=== PATIENT | male | born 1990 | race African-American/Black ===

== ENCOUNTER 2024-03-26 07:51 | Emergency (ER) | payer OTHER, SELFPAY ==
[2024-03-26 07:55] VITALS: BP 158/95; PULSE 65; RESP 18; TEMP 36.8; O2SAT 100
--- NOTE | 2024-03-26 07:56 | ED.WOUNDLAC ---
HPI - Wound/Laceration General Chief Complaint: Wound/Laceration Stated Complaint: lac Time Seen by Provider: 03/26/24 07:53 History of Present Illness HPI narrative: Patient was playing basketball when he caught an elbow to the face no nausea vomiting or loss of consciousness, tetanus up-to-date. Happened about 45 minutes prior to arrival Related Data Allergies Allergy/AdvReac Type Severity Reaction Status Date / Time No Known Allergies Allergy Verified 03/26/24 07:52 Review of Systems Review of Systems: All systems reviewed & are unremarkable except as noted in HPI and below Exam Narrative: EXAMINATION OF ORGAN SYSTEMS/BODY AREAS: Constitutional: Vital signs per nursing GENERAL:[No acute distress, non-toxic appearing.] HEAD: Laceration to forehead EYES: EOMI, conjunctiva normal ENT: Hearing grossly intact LUNGS: Nonlabored breathing. HEART: [Regular rate and rhythm] ABD: [Soft], [nontender to palpation] EXT: Normal range of motion SKIN: 2cm lac to glabella NEURO: [Alert and oriented x 3. No gross focal sensory or strength deficits.] PSYCH: Normal affect Course Vital Signs Vital signs: Vital Signs Temperature 98.2 F 03/26/24 07:55 Pulse Rate 65 03/26/24 07:55 Respiratory Rate 18 03/26/24 07:55 Blood Pressure 158/95 H 03/26/24 07:55 Pulse Oximetry 100 03/26/24 07:55 Oxygen Delivery Room Air 03/26/24 07:55 Temperature 98.2 F 03/26/24 07:55 Pulse Rate 65 03/26/24 07:55 Respiratory Rate 18 03/26/24 07:55 Blood Pressure 158/95 H 03/26/24 07:55 Pulse Oximetry 100 03/26/24 07:55 Oxygen Delivery Room Air 03/26/24 07:55 Procedures Laceration Laceration 1: Date: 03/26/24 Time: 08:29 Site: face Size (cm): 2 Description: linear, irregular and clean Depth: simple, single layer Local Anesthetic: lidocaine 1% Amount of anesthesia used (mL): 2 Pre-repair: wound explored, irrigated and deep structures intact ====== Skin Level ====== Skin layer closed with: vicryl Size (cm): 5-0 Number of sutures: 5 Technique: simple, interrupted ====== Subcutaneous Layer ====== ====== Muscle Layer ====== ====== Tendon Layer ====== MDM - Wound/Laceration MDM Narrative Medical decision making narrative: Patient presents with facial laceration, well appearing, no loss of consciousness or nausea vomiting or injuries elsewhere. Gaping 2 cm laceration to glabella, verbal consent obtained, laceration cleaned, numbed, repaired, patient tolerated well, total of 5 5-0 Vicryl sutures placed with good approximation. Stable for discharge with return precautions. Patient's tetanus is up-to-date. Discharge Plan Discharge Clinical Impression: Laceration Patient Disposition: Home, Self-Care Condition: Stable Instructions: Antibiotic Form, Laceration (ED) Additional Instructions: Keep the wound clean, use sunscreen or sun protection and moisturize to help minimize scarring, you can have the stitches taken out in 1 week or they should dissolve on their own. You can always return to the ER for any further issues. Follow-up/Referrals: Anthony,Jey Baca MD [Primary Care Provider] - 1 Week
--- NOTE | 2024-03-26 08:01 | PC.NURSE ---
33 year old male presents to ED for laceration sustained by playing basketball. Patient states that he was hit by a players elbow. Laceration is about 1cm in length, well approximated. Patient is alert and oriented x's 4. Ambulatory to room 14 with steady gait. Wound cleansed with sterile water and gauze.
--- NOTE | 2024-03-26 08:06 | PC.NURSE ---
MD Priceang in with patient at this time placing sutures.
[2024-03-26 08:58] VITALS: BP 152/66; PULSE 70; RESP 18; TEMP 36.2; O2SAT 98
== END 2024-03-26 09:00 | disposition home or self-care (01) ==
LOC: ANHED 08:25
PROVIDERS: Emergency Provider Emergency Medicine; PCP Internal Medicine
DX: S01.81XA Laceration without foreign body of other part of head, initial encounter (principal); W51.XXXA Accidental striking against or bumped into by another person, initial encounter; Y93.66 Activity, soccer
CPT/HCPCS: 12011; 99282; J2004

== ENCOUNTER 2025-02-13 14:22 | Emergency (ER) | payer OTHER, SELFPAY ==
[2025-02-13 14:30] VITALS: BP 127/107; PULSE 61; RESP 16; TEMP 36.9; O2SAT 98
--- NOTE | 2025-02-13 15:03 | ED_ITS ---
HPI - Eye Problem General Chief complaint: Eye Problems Stated complaint: hit in eye with basketball Time Seen by Provider: 02/13/25 14:41 History of Present Illness HPI Narrative: This is a 34-year-old male with no significant past medical history presents the ED for right eye pain. Patient states that he was playing basketball this morning when he was hit in the right eye with the ball. He has had a sandpaper like feeling to his eye since then. He has had some blurry vision. He does not wear contacts. Related Data Allergies Allergy/AdvReac Type Severity Reaction Status Date / Time No Known Allergies Allergy Verified 03/26/24 07:52 Review of Systems Review of Systems: Gen.: Denies fevers or chills Eyes: Denies eye pain or visual change ENT: Denies congestion Respiratory: Denies shortness of breath or cough CV: Denies chest pain or palpitations GI: Denies abdominal pain nausea, emesis or diarrhea denies burning, urgency, frequency or hematuria Musculoskeletal: Denies back pain or muscle pain Neuro: Denies numbness, tingling, weakness or focal weakness Skin: Denies rash Except as documented, all other systems reviewed and negative Exam Narrative: APPEARANCE: No acute distress, nontoxic, resting in bed HEENT: Normocephalic, atraumatic, OMM. Right eye: Fluorescein staining revealed a small corneal abrasion over the right pupil. PERRL, EOMI. RESPIRATORY: No respiratory distress CARDIOVASCULAR: Appears well perfused ABDOMINAL: Nondistended MUSCULOSKELETAl: Moves all extremities. No obvious deformities NEURO: Awake and alert. SKIN:: Warm, dry. No rashes lesions or abrasions PSYCHIATRIC: Normal affect/mood, Course Vital Signs Vital signs: Vital Signs Temperature 98.5 F 02/13/25 14:30 Pulse Rate 61 02/13/25 14:30 Respiratory Rate 16 02/13/25 14:30 Blood Pressure 127/107 H 02/13/25 14:30 Pulse Oximetry 98 02/13/25 14:30 Oxygen Delivery Room Air 02/13/25 14:30 Temperature 98.5 F 02/13/25 14:30 Pulse Rate 61 02/13/25 14:30 Respiratory Rate 16 02/13/25 14:30 Blood Pressure 127/107 H 02/13/25 14:30 Pulse Oximetry 98 02/13/25 14:30 Oxygen Delivery Room Air 02/13/25 14:30 MDM - Eye Problem MDM Narrative Medical decision making narrative: 34-year-old male who presented to the ED for right eye pain after being hit with a basketball. On initial evaluation, patient was in no acute distress, afebrile and hemodynamically stable. Forcing staining did reveal a small corneal abrasion over the right pupil. Patient was given a prescription for erythromycin. He has an appointment tomorrow with the mill set up which I encouraged him to go to. Patient was agreeable to this plan. Given strict return precautions. Differential Diagnosis Differential diagnosis: Likely corneal abrasion, acute iritis, corneal ulcer and ruptured globe Medical Records Attestation: I reviewed the patient's medical records. Discharge Plan Discharge Clinical Impression: Corneal abrasion Qualifiers: Encounter type: initial encounter Laterality: right Qualified Code(s): S05.01XA - Injury of conjunctiva and corneal abrasion without foreign body, right eye, initial encounter Patient Disposition: Home Condition: Stable Instructions: Antibiotic Form Additional Instructions: Take erythromycin ointment as prescribed. Follow-up with your mill set up tomorrow as scheduled. You may also follow-up with [facility] in next couple days for re-evaluation. Return the ED for any new or worsening symptoms. You may also use saline drops to the eyes in between doses. Patient Language: Somali Prescriptions: New erythromycin 5 mg/gram (0.5 %) ointment 1 applic RIGHT EYE Q6H Qty: 3.5 0RF Follow-up/Referrals: [facility] [Outside] Anthony,Jey Baca MD [Primary Care Provider]
--- OUTSIDE RECORDS SUMMARY | 2025-02-13 16:09 | XMS_ITS | Clinical Summary ---
Author Organization [facility] Address [address] [place] [id number] Care Team Providers Care Tenant Selector Name Role Phone Jey Cruz MD Primary Care Provider Allergies No known active allergies Medications No known medications Active Problems No known active problems Encounters Date Type Department Care Team Description 12/09/[address] [facility] Neuro Sleep [address] [facility] [address] [place] [phone] Robles Levy NP Sleep disturbances (Primary Dx) 12/09/[address] [facility] Neuro Sleep [address] [facility] [address] [place] [address] Tianna Ponce CMA 11/28/2024 11:00 AM CDT Procedure visit [facility] Neuro Sleep [address] [facility] [address] [place] [address] Snoring from Last 3 Months Immunizations Immunization Administration Dates Next Due Influenza, Quadrivalent, Rec ombinant, Egg Free, Preservative Free, Intramuscular 07/28/2022 Tdap 06/26/2020 Family History Medical History Relation Name Comments No Known Problems Brother Hipolito No Known Problems Father Asthma Mother Coronary artery disease Mother Stroke Paternal Grandfather No Known Problems Sister 1 Nina No Known Problems Sister 2 Arina Relation Name Status Comments Brother Hipolito Alive Father Alive Maternal Grandfather Alive Maternal Grandmother Alive Mother Alive Paternal Grandfather Alive Paternal Grandmother Alive Sister 1 Nina Alive Sister 2 Arina Alive Social History Tobacco Use Types Packs/Day Years Used Date Smoking Tobacco: Never Smokeless Tobacco: Never Tobacco Cessation:Counseling Given: Not Answered PHQ-2 Answer Date Recorded PHQ-2 Total Score (If total score is 3 or more points, staff should administer the PHQ-9) 0 07/31/2024 PHQ-9 Answer Date Recorded PHQ-9 Total Score 0 07/31/2024 Sex and Gender Information Value Date Recorded Sex Assigned at Not on file 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 Gender Identity Male 07/29/2021 8:10 AM SUPERVISOR DYER Sexual Orientation Not on file Obstetrics History Last Filed Vital Signs Vital Sign Reading Time Taken Comments Blood Pressure 136/78 11/06/2024 10:54 AM CDT Pulse 59 11/06/2024 10:54 AM CDT Temperature 36.7 C (98.1 F) 11/06/2024 10:54 AM CDT Respiratory Rate 16 06/26/2020 7:57 AM SUPERVISOR DYER Oxygen Saturation 99% 11/06/2024 10:54 AM CDT Inhaled Oxygen Concentration - - Weight 110.7 kg (244 lb) 11/06/2024 10:54 AM CDT Height 180.3 cm (5' 11) 11/06/2024 10:54 AM CDT Body Mass Index 34.03 11/06/2024 10:54 AM CDT Plan of Treatment Health Maintenance Due Date Last Done Comments Hepatitis C Screening 1989 Hepatitis B Screening 10/07/2007 HPV Vaccines (1 - 3-dose SCDM series) 2016 Depression Screening 07/31/2025 07/31/2024, 07/26/2023, 07/28/2022, Additional history exists Regular Well Visit/Exam 18-64 07/31/2025 07/31/2024, 07/26/2023, 07/28/2022, Additional history exists DTaP/Tdap/Td Vaccine (2 - Td or Tdap) 06/26/2030 06/26/2020 Influenza Vaccine Discontinued 07/28/2022 Pneumococcal vaccine <65 Aged Out No longer eligible based on patient's age to complete this topic Varicella Vaccines Discontinued Insurance [place] [address] [place] [address] LOCAL PLUS LOCAL PLUS Advance Directives For more information, please contact: [phone] Documents on File Type Date Recorded Patient Physics Instructor Expl anation ADVANCE DIRECTIVE 04/04/2024 9:32 AM ER.. LACERATION WOUND Care Teams Tenant Selector Relationship Specialty Start Date End Date Jey Cruz MD PCP - General Internal Medicine 05/26/20
--- OUTSIDE RECORDS SUMMARY | 2025-02-13 16:39 | XMS_ITS | Clinical Summary ---
Author Organization [facility] Address [address] [place] [id number] Care Team Providers Care Share Holder Name Role Phone Jey Cruz MD Primary Care Provider Allergies No known active allergies Medications No known medications Active Problems No known active problems Encounters Date Type Department Care Team Description 12/09/2024 Orders Only [facility] Neuro Sleep [address] [facility] [address] [place] [phone] Robles Levy NP Sleep disturbances (Primary Dx) 12/09/2024 Telephone [facility] Neuro Sleep [address] [facility] [address] [place] [address] Tianna Ponce CMA 11/28/2024 11:00 AM CDT Procedure visit [facility] Medicine Neuro Sleep [address] [facility] [address] [place] [address] Snoring from Last 3 Months [...] on file 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 Gender Identity Male 07/29/2021 8:10 AM PARACHUTE FOLDER Sexual Orientation Not on file Obstetrics History Last Filed Vital Signs Vital Sign Reading Time Taken Comments Blood Pressure 136/78 11/06/2024 10:54 AM CDT Pulse 59 11/06/2024 10:54 AM CDT Temperature 36.7 C (98.1 F) 11/06/2024 10:54 AM CDT Respiratory Rate 16 06/26/2020 7:57 AM PARACHUTE FOLDER Oxygen Saturation 99% 11/06/2024 10:54 AM CDT [...] Vaccines Discontinued Insurance [place] [address] [place] [address] LOCAL PLUS LOCAL PLUS Advance Directives For more information, please contact: [phone] Documents on File Type Date Recorded Patient Tank Cooper Expl anation ADVANCE DIRECTIVE 04/04/2024 9:32 AM ER.. LACERATION WOUND Care Teams Share Holder Relationship Specialty Start Date End Date Jey Cruz MD PCP - General Internal Medicine 05/26/20
== END 2025-02-13 15:50 | disposition home or self-care (01) ==
LOC: ANHED 15:14
PROVIDERS: Emergency Provider Student in an Organized Health Care Education/Training Program; PCP Internal Medicine
DX: S05.01XA Injury of conjunctiva and corneal abrasion without foreign body, right eye, initial encounter (principal); W22.8XXA Striking against or struck by other objects, initial encounter; Y93.67 Activity, basketball
CPT/HCPCS: 99283